=== PATIENT | female | born 1995 | race Caucasian/White ===

== ENCOUNTER → 2017-12-14 | Outpatient (CLI) | payer OTHER | END | disposition home or self-care (01) | LOC: PETCFH 12:25 | PROVIDERS: ATTEND Nurse Practitioner Family | DX: R14.0 Abdominal distension (gaseous) (principal); R10.9 Unspecified abdominal pain | CPT/HCPCS: 78264; A9541 ==

== ENCOUNTER 2018-01-01 07:22 | Emergency (ER) | payer OTHER ==
[~2018-01-01] VITALS: Ht 162.6 cm; Wt 68.1 kg
[2018-01-01 07:24] VITALS: BP 124/75
[2018-01-01] MEDS ORDERED: LIDOCAINE-MPF 1%, 5ML ONE (07:46)
[2018-01-01] MEDS ORDERED: LIDOCAINE-MPF 1%, 5ML INFIL ONE (08:00)
== END 2018-01-01 08:50 | disposition home or self-care (01) ==
LOC: ED 08:02
DX: L03.115 Cellulitis of right lower limb (principal); L02.415 Cutaneous abscess of right lower limb
CPT/HCPCS: 10060; 99283